=== PATIENT | female | born 1990 | race Caucasian/White ===

== ENCOUNTER 2018-04-24 20:55 | Emergency (ER) | payer OTHER ==
[~2018-04-24] VITALS: Ht 162.6 cm; Wt 54.4 kg
[2018-04-24] MEDS ORDERED: NORCO 5-325 TA1 EACH PO (22:16)
[2018-04-24 22:20] VITALS: BP 133/88
== END 2018-04-24 22:21 | disposition home or self-care (01) ==
LOC: M.ERS 20:55
DX: S52.092A Other fracture of upper end of left ulna, initial encounter for closed fracture (principal); F17.200 Nicotine dependence, unspecified, uncomplicated; W22.03XA Walked into furniture, initial encounter; Y93.89 Activity, other specified; Y92.89 Other specified places as the place of occurrence of the external cause; Y99.8 Other external cause status

== ENCOUNTER 2018-11-27 16:39 | Emergency (ER) | payer OTHER ==
[~2018-11-27 16:39] MED LIST: NORCO 5-325 TA1 EACH PO
== END 2018-11-27 18:48 | disposition home or self-care (01) ==
LOC: M.ERS 16:39
DX: Z53.21 Procedure and treatment not carried out due to patient leaving prior to being seen by health care provider (principal)

== ENCOUNTER 2018-11-27 17:29 | Emergency (ER) | payer OTHER ==
[~2018-11-27] VITALS: Ht 165.1 cm; Wt 54.4 kg
[2018-11-27 18:48] VITALS: BP 115/74
--- NOTE | 2018-11-28 15:06 | EKG ---
[place] [address] ELECTROCARDIOGRAM REPORT Name: NOEMI,CARL Room: [facility]#: [id number] Admission: 11/27/18 Attend Phys: Discharge: 11/27/18 Date of : [birth year] Report #: [id number] THIS REPORT FOR: //name// [facility] ED Test Date: 2018-11-27 Test Time: 17:55:31 Pat Name: CARL FRANKLIN Department: Room: Gender: F [employer]: BRIDGET : 1990 Requested By: Reena Polo Order Number: [id number] MD: Edi Stone Measurements Intervals [address] Rate: 70 P: FL: QRS: 63 QRSD: 85 T: 26 QT: 384 QTc: 415 Interpretive Statements Normal sinus rhythm RSR' in V1 or V2, right VCD or RVH No previous ECG available for comparison Electronically Signed On 11-28-2018 15:05:54 CDT by Edi Stone [email or web address] <ELECTRONICALLY SIGNED> By: Edi Stone MD, [facility] 11/28/18 1505 [id number] Edi Stone MD, FACC /EPI
== END 2018-11-27 18:48 | disposition home or self-care (01) ==
LOC: M.ERS 17:29
DX: K08.89 Other specified disorders of teeth and supporting structures (principal); F17.200 Nicotine dependence, unspecified, uncomplicated